=== PATIENT | female | born 1945 | race Caucasian/White ===

== ENCOUNTER 2022-02-11 09:30 | Day surgery (SDC) | payer OTHER ==
[~2022-02-11] VITALS: Ht 165.1 cm; Wt 99.8 kg
[2022-02-11] MEDS: MIDAZOLAM HCL 5 MG/5 ML VIAL ONE ×3 (11:01→11:25)
[2022-02-11] MEDS: fentaNYL CITRATE/PF 100 MCG/2 ML AMP ONE ×2 (11:01→11:03)
[2022-02-11 15:35] VITALS: BP_SYST 121
== END 2022-02-11 12:43 | disposition home or self-care (01) ==
LOC: SDS 09:30 → SMU 09:36 → SDS 12:43
PROVIDERS: ATTEND Surgery
DX: Z12.11 Encounter for screening for malignant neoplasm of colon (principal); D12.5 Benign neoplasm of sigmoid colon; K57.30 Diverticulosis of large intestine without perforation or abscess without bleeding; Z86.010 Personal history of colon polyps; I10 Essential (primary) hypertension; E11.9 Type 2 diabetes mellitus without complications; Z79.82 Long term (current) use of aspirin; Z79.84 Long term (current) use of oral hypoglycemic drugs; Z79.899 Other long term (current) drug therapy; Z20.822 Contact with and (suspected) exposure to COVID-19
CPT/HCPCS: 36415 ×2; 45380; 87426; 82962; 88305; 99152; 99153; U0003; G0378; J2250; J3010; J7120